=== PATIENT | female | born 1950 | race Caucasian/White ===

== ENCOUNTER 2020-11-23 06:15 | Inpatient (IN) ==
[2020-11-23] MEDS ORDERED: CeFAZolin Syr 2,000MG/20 ML 2,000 MG/20 ML SYRINGE IVPB ONE (06:31)
[2020-11-23] MEDS ORDERED: *HR* Succinylcholine 200 MG/10 ML VIAL IVP ONE (06:40)
[2020-11-23] MEDS ORDERED: *HR* Rocuronium Bromide 50 MG/5 ML VIAL ONE ×2 (06:40→09:19)
[2020-11-23] MEDS ORDERED: Lidocaine -MPF 2% 2 ML VIAL ONE ×2 (06:40→07:03)
[2020-11-23] MEDS ORDERED: *HR* Propofol 200 MG/20 ML VIAL IVP ONE (06:43)
[2020-11-23] MEDS ORDERED: Ringers Solution, Lactated 1,000 ML IVC SCH (06:45)
[2020-11-23] MEDS ORDERED: *HR* FentaNYL (PF) 100 MCG/2 ML VIAL ONE ×2 (06:45→09:05)
[2020-11-23] MEDS ORDERED: Gabapentin 300 MG CAPSULE PO ONE (06:56)
[2020-11-23] MEDS ORDERED: Famotidine 20 MG/2 ML VIAL IVP ONE (06:56)
[2020-11-23] MEDS ORDERED: Acetaminophen IV 1,000 MG/100 ML BAG IVPB ONE (06:56)
[2020-11-23] MEDS ORDERED: Ondansetron 4 MG/2 ML VIAL IVP PRN (07:09)
[2020-11-23] MEDS ORDERED: *HR* OxyCODONE Immed Rel 5 MG TABLET PO PRN (07:09)
[2020-11-23] MEDS ORDERED: Lidocaine 5% OINT 35 APPL/35.44 GM TUBE TP ONE (07:11)
[2020-11-23] MEDS ORDERED: Ketamine *HR* 500 MG/10 ML MDV ONE (07:11)
[2020-11-23] MEDS ORDERED: EPHEDrine 50 MG/ML VIAL ONE (08:51)
[2020-11-23] MEDS: *HR* HYDROmorphone PF 0.5 MG/0.5 ML SYRINGE IVP PRN ×4 (10:59→11:20)
[2020-11-23] MEDS ORDERED: Naloxone 0.4 MG/ML INJ IVP PRN (14:29)
[2020-11-23] MEDS: 0.9 % Sodium Chloride 1,000 ML IVC SCH (18:39)
[2020-11-23] MEDS: Gabapentin 300 MG CAPSULE PO SCH (20:13)
[2020-11-23] MEDS: Famotidine 20 MG TABLET PO SCH (20:13)
[2020-11-23] MEDS: *HR* HYDROcodone/Acet 5/325 mg TABLET PO PRN (22:36)
[2020-11-24] MEDS: *HR* HYDROcodone/Acet 5/325 mg TABLET PO PRN ×3 (03:46→15:22)
[2020-11-24 04:47] LABS: Basophils % 0.3 %; Eosinophils # 0.2 K/mcL (0.0-0.6); Eosinophils % 1.4 %; Hematocrit 36.9 % (35.3-44.9); Hemoglobin 11.8 g/dL (11.5-15.4); Immature Granulocytes % 0.2 % (0-4); Lymphocytes # 1.3 K/mcL (0.6-4.6); Lymphocytes % 10.6 %; Mean Corpuscular Hemoglobin 32.7 pg (28.0-33.3); Mean Corpuscular Volume 102.2 fL (83.0-100.0); Mean Platelet Volume 9.4 fL (9.4-12.4); Monocytes # 0.6 K/mcL (0.0-1.3); Monocytes % 4.5 %; Neutrophils # 10.1 K/mcL (1.6-8.9); Platelet Count 197 K/mcL (140-400); Red Blood Count 3.61 M/mcL (3.82-4.97); Red Cell Distribution Width 13.4 % (11.5-14.5); White Blood Count 12.2 K/mcL (4.3-11.1)
[2020-11-24 05:03] LABS: Calcium 8.5 mg/dL (8.6-10.3); Magnesium 1.8 mg/dL (1.6-2.6); Potassium 4.2 mEq/L (3.5-5.1)
[2020-11-24] MEDS ORDERED: *HR* HYDROmorphone 2 MG/ML SYRINGE IVP PRN (05:18)
[2020-11-24] MEDS: 0.9 % Sodium Chloride 1,000 ML IVC SCH ×2 (09:35→21:39)
[2020-11-24] MEDS ORDERED: Ondansetron 4 MG/2 ML VIAL IVP PRN (09:35)
[2020-11-24] MEDS: Famotidine 20 MG TABLET PO SCH ×2 (09:35→21:40)
[2020-11-24] MEDS: Gabapentin 300 MG CAPSULE PO SCH ×3 (09:35→21:40)
[2020-11-24] MEDS: amLODIPine 5 MG TABLET PO SCH (09:49)
[2020-11-24] MEDS: *HR* HYDROmorphone 2 MG/ML SYRINGE IVP PRN ×3 (13:14→21:40)
[2020-11-24] MEDS: *HR* Heparin 5,000 UNIT/ML VIAL SQ SCH ×2 (15:21→21:41)
[2020-11-24] MEDS: carvediloL 25 MG TABLET PO SCH (21:40)
[2020-11-24] MEDS: Sennosides/Docusate Sodium TABLET PO SCH (21:41)
[2020-11-24] MEDS ORDERED: Furosemide 20 MG/2 ML VIAL IVP ONE (22:23)
[2020-11-24] MEDS: Albuterol 2.5 MG/3 ML NEBULIZER IH PRN (22:35)
[2020-11-25 02:20] LABS: Calcium 8.8 mg/dL (8.6-10.3); Potassium 5.2 mEq/L (3.5-5.1)
[2020-11-25] MEDS: *HR* Heparin 5,000 UNIT/ML VIAL SQ SCH ×3 (06:54→20:55)
[2020-11-25] MEDS: *HR* HYDROmorphone 2 MG/ML SYRINGE IVP PRN (08:05)
[2020-11-25] MEDS: carvediloL 25 MG TABLET PO SCH ×2 (08:07→20:55)
[2020-11-25] MEDS: Sennosides/Docusate Sodium TABLET PO SCH ×2 (08:07→20:54)
[2020-11-25] MEDS: amLODIPine 5 MG TABLET PO SCH (08:07)
[2020-11-25] MEDS: Aspirin Enteric Coated 81 MG Tablet PO SCH (08:07)
[2020-11-25] MEDS: Famotidine 20 MG TABLET PO SCH (08:08)
[2020-11-25] MEDS: Gabapentin 300 MG CAPSULE PO SCH ×3 (08:08→20:55)
[2020-11-25] MEDS: Tiotropium 10 INH DOSE IH SCH (08:10)
[2020-11-25] MEDS: *HR* HYDROcodone/Acet 10/325 mg TABLET PO PRN ×2 (16:36→20:54)
[2020-11-25] MEDS: Albuterol 2.5 MG/3 ML NEBULIZER IH PRN (20:57)
[2020-11-26 01:30] LABS: Basophils % 0.2 %; Eosinophils # 0.1 K/mcL (0.0-0.6); Eosinophils % 0.9 %; Hematocrit 33.5 % (35.3-44.9); Hemoglobin 10.5 g/dL (11.5-15.4); Immature Granulocytes % 0.4 % (0-4); Lymphocytes # 0.9 K/mcL (0.6-4.6); Lymphocytes % 8.8 %; Mean Corpuscular HGB Conc 31.3 g/dL (31.6-35.5); Mean Corpuscular Hemoglobin 31.9 pg (28.0-33.3); Mean Corpuscular Volume 101.8 fL (83.0-100.0); Mean Platelet Volume 9.7 fL (9.4-12.4); Monocytes # 0.4 K/mcL (0.0-1.3); Monocytes % 4.3 %; Neutrophils # 8.4 K/mcL (1.6-8.9); Platelet Count 185 K/mcL (140-400); Red Blood Count 3.29 M/mcL (3.82-4.97); Red Cell Distribution Width 13.4 % (11.5-14.5); Segmented Neutrophils % 85.4 %; White Blood Count 9.8 K/mcL (4.3-11.1)
[2020-11-26 01:42] LABS: Calcium 8.4 mg/dL (8.6-10.3); Potassium 4.7 mEq/L (3.5-5.1)
[2020-11-26] MEDS: *HR* HYDROcodone/Acet 10/325 mg TABLET PO PRN ×4 (02:46→19:24)
[2020-11-26] MEDS: Albuterol 2.5 MG/3 ML NEBULIZER IH PRN (03:53)
[2020-11-26] MEDS: *HR* Heparin 5,000 UNIT/ML VIAL SQ SCH ×3 (06:19→21:39)
[2020-11-26] MEDS: Tiotropium 10 INH DOSE IH SCH (07:55)
[2020-11-26] MEDS: Aspirin Enteric Coated 81 MG Tablet PO SCH (08:28)
[2020-11-26] MEDS: Sennosides/Docusate Sodium TABLET PO SCH ×2 (08:28→21:39)
[2020-11-26] MEDS: Gabapentin 300 MG CAPSULE PO SCH ×3 (08:28→21:38)
[2020-11-26] MEDS: amLODIPine 5 MG TABLET PO SCH (08:28)
[2020-11-26] MEDS: Famotidine 20 MG TABLET PO SCH (08:28)
[2020-11-26] MEDS: carvediloL 25 MG TABLET PO SCH ×2 (08:29→21:38)
[2020-11-26] MEDS ORDERED: Morphine Sulfate 2 MG/ML SYRINGE IVP PRN (08:39)
[2020-11-26] MEDS: Albuterol 2.5 MG/3 ML NEBULIZER IH SCH ×3 (11:30→21:49)
[2020-11-27] MEDS: Albuterol 2.5 MG/3 ML NEBULIZER IH SCH ×4 (03:54→22:18)
[2020-11-27 07:07] LABS: BUN/Creatinine Ratio 38 (6-26); Blood Urea Nitrogen 30 mg/dL (8-23); Calcium 8.7 mg/dL (8.6-10.3); Carbon Dioxide 23 mEq/L (23-29); Chloride 109 mEq/L (98-107); Glucose 91 mg/dL (70-105); Osmolality,Calculated 296 (280-300); Potassium 4.4 mEq/L (3.5-5.1); Sodium 140 mEq/L (136-145); eGFR For African Americans > 60 (> 60); eGFR For Non-African Americans > 60 (> 60)
[2020-11-27] MEDS: Gabapentin 300 MG CAPSULE PO SCH ×3 (07:27→23:54)
[2020-11-27] MEDS: Famotidine 20 MG TABLET PO SCH (07:27)
[2020-11-27] MEDS: carvediloL 25 MG TABLET PO SCH ×2 (07:27→23:54)
[2020-11-27] MEDS: Sennosides/Docusate Sodium TABLET PO SCH ×2 (07:27→23:55)
[2020-11-27] MEDS: Aspirin Enteric Coated 81 MG Tablet PO SCH (07:27)
[2020-11-27] MEDS: amLODIPine 5 MG TABLET PO SCH (07:27)
[2020-11-27] MEDS: Tiotropium 10 INH DOSE IH SCH (11:56)
[2020-11-27] MEDS: *HR* Heparin 5,000 UNIT/ML VIAL SQ SCH ×3 (14:07→23:55)
[2020-11-27] MEDS: *HR* HYDROcodone/Acet 10/325 mg TABLET PO PRN (15:48)
[2020-11-28] MEDS: Albuterol 2.5 MG/3 ML NEBULIZER IH SCH ×4 (03:29→22:27)
[2020-11-28] MEDS: Gabapentin 300 MG CAPSULE PO SCH ×3 (08:22→20:08)
[2020-11-28] MEDS: carvediloL 25 MG TABLET PO SCH ×2 (08:22→20:07)
[2020-11-28] MEDS: Aspirin Enteric Coated 81 MG Tablet PO SCH (08:25)
[2020-11-28] MEDS: polyethylene glycoL 3350 17 GM POWD.PACK PO SCH (08:26)
[2020-11-28] MEDS: Famotidine 20 MG TABLET PO SCH (08:44)
[2020-11-28] MEDS: Sennosides/Docusate Sodium TABLET PO SCH ×2 (08:44→20:07)
[2020-11-28] MEDS: amLODIPine 5 MG TABLET PO SCH (08:44)
[2020-11-28] MEDS: Tiotropium 10 INH DOSE IH SCH (10:44)
[2020-11-28] MEDS: *HR* Heparin 5,000 UNIT/ML VIAL SQ SCH ×3 (16:03→20:06)
[2020-11-29 01:40] LABS: Hematocrit 34.7 % (35.3-44.9); Hemoglobin 11.4 g/dL (11.5-15.4); Mean Corpuscular HGB Conc 32.9 g/dL (31.6-35.5); Mean Corpuscular Hemoglobin 32.2 pg (28.0-33.3); Mean Platelet Volume 9.6 fL (9.4-12.4); Platelet Count 257 K/mcL (140-400); Red Blood Count 3.54 M/mcL (3.82-4.97); Red Cell Distribution Width 13.2 % (11.5-14.5); White Blood Count 9.7 K/mcL (4.3-11.1)
[2020-11-29 02:00] LABS: % Iron Saturation 6 % (15-50); BUN/Creatinine Ratio 35 (6-26); Blood Urea Nitrogen 25 mg/dL (8-23); Calcium 8.8 mg/dL (8.6-10.3); Carbon Dioxide 26 mEq/L (23-29); Chloride 108 mEq/L (98-107); Glucose 88 mg/dL (70-105); Iron 13 mcg/dL (50-170); Magnesium 1.7 mg/dL (1.6-2.6); Osmolality,Calculated 300 (280-300); Potassium 3.6 mEq/L (3.5-5.1); Sodium 143 mEq/L (136-145); Transferrin 161 mg/dL (203-362); eGFR For African Americans > 60 (> 60); eGFR For Non-African Americans > 60 (> 60)
[2020-11-29] MEDS: Albuterol 2.5 MG/3 ML NEBULIZER IH SCH ×4 (03:51→22:09)
[2020-11-29] MEDS: amLODIPine 5 MG TABLET PO SCH (08:12)
[2020-11-29] MEDS: Sennosides/Docusate Sodium TABLET PO SCH ×2 (08:12→20:52)
[2020-11-29] MEDS: Famotidine 20 MG TABLET PO SCH (08:12)
[2020-11-29] MEDS: Gabapentin 300 MG CAPSULE PO SCH ×3 (08:12→20:51)
[2020-11-29] MEDS: Aspirin Enteric Coated 81 MG Tablet PO SCH (08:13)
[2020-11-29] MEDS: polyethylene glycoL 3350 17 GM POWD.PACK PO SCH (08:13)
[2020-11-29] MEDS: carvediloL 25 MG TABLET PO SCH ×2 (08:13→20:51)
[2020-11-29] MEDS: *HR* Heparin 5,000 UNIT/ML VIAL SQ SCH ×3 (08:18→20:52)
[2020-11-29] MEDS ORDERED: Iron Sucrose Complex 400 MG in 0.9 % Sodium Chloride 250 ML IVPB ONE (10:10)
[2020-11-29] MEDS: Acetaminophen 325 MG TABLET PO PRN ×2 (11:04→20:51)
[2020-11-29] MEDS: Tiotropium 10 INH DOSE IH SCH (11:20)
[2020-11-30] MEDS: Albuterol 2.5 MG/3 ML NEBULIZER IH SCH ×3 (04:05→15:22)
[2020-11-30] MEDS: *HR* Heparin 5,000 UNIT/ML VIAL SQ SCH (06:22)
[2020-11-30] MEDS: carvediloL 25 MG TABLET PO SCH (07:49)
[2020-11-30] MEDS: Famotidine 20 MG TABLET PO SCH (07:49)
[2020-11-30] MEDS: Sennosides/Docusate Sodium TABLET PO SCH (07:49)
[2020-11-30] MEDS: Gabapentin 300 MG CAPSULE PO SCH (07:49)
[2020-11-30] MEDS: amLODIPine 5 MG TABLET PO SCH (07:49)
[2020-11-30] MEDS: Acetaminophen 325 MG TABLET PO PRN (07:49)
[2020-11-30] MEDS: Aspirin Enteric Coated 81 MG Tablet PO SCH (07:49)
[2020-11-30] MEDS: polyethylene glycoL 3350 17 GM POWD.PACK PO SCH (07:50)
[2020-11-30] MEDS: Tiotropium 10 INH DOSE IH SCH (10:47)
[2020-11-30 11:21] VITALS: BP 143/90
[2020-11-30] MEDS: *HR* HYDROcodone/Acet 10/325 mg TABLET PO PRN (13:45)
== END 2020-11-30 15:55 | disposition home or self-care (01) | DRG 164 ==
LOC: SAMDAY 06:15 → 2NNU 11:44
PROVIDERS: ADMIT Thoracic Surgery (Cardiothoracic Vascular Surgery); ATTEND Thoracic Surgery (Cardiothoracic Vascular Surgery)

== ENCOUNTER 2020-12-03 11:49 | Inpatient (IN) ==
[2020-12-03] MEDS ORDERED: Ondansetron 4 MG/2 ML VIAL IVP PRN (15:18)
[2020-12-03] MEDS ORDERED: Naloxone 0.4 MG/ML INJ IVP PRN (15:18)
[2020-12-03] MEDS ORDERED: Nitroglycerin 0.4 MG TAB.SUBL SL PRN (15:22)
[2020-12-03] MEDS ORDERED: Azithromycin 500 MG in D5% in Water 250 ML IVPB SCH (16:00)
[2020-12-03] MEDS ORDERED: cefTRIAXone 1,000 MG in Water for inj. (sterile) 20 ML IVP SCH (16:00)
[2020-12-03 16:25] LABS: Basophils % 0.2 %; Eosinophils % 0.1 %; Hematocrit 32.5 % (35.3-44.9); Hemoglobin 10.7 g/dL (11.5-15.4); Immature Granulocytes % 0.6 % (0-4); Lymphocytes # 0.8 K/mcL (0.6-4.6); Lymphocytes % 4.4 %; Mean Corpuscular HGB Conc 32.9 g/dL (31.6-35.5); Mean Corpuscular Hemoglobin 32.8 pg (28.0-33.3); Mean Corpuscular Volume 99.7 fL (83.0-100.0); Mean Platelet Volume 9.5 fL (9.4-12.4); Monocytes # 0.4 K/mcL (0.0-1.3); Monocytes % 2.1 %; Neutrophils # 17.2 K/mcL (1.6-8.9); Platelet Count 336 K/mcL (140-400); Red Blood Count 3.26 M/mcL (3.82-4.97); Red Cell Distribution Width 12.9 % (11.5-14.5); Segmented Neutrophils % 92.6 %; White Blood Count 18.6 K/mcL (4.3-11.1)
[2020-12-03 16:45] LABS: BUN/Creatinine Ratio 24 (6-26); Blood Urea Nitrogen 18 mg/dL (8-23); Calcium 8.4 mg/dL (8.6-10.3); Carbon Dioxide 29 mEq/L (23-29); Chloride 103 mEq/L (98-107); Glucose 104 mg/dL (70-105); Osmolality,Calculated 290 (280-300); Potassium 3.7 mEq/L (3.5-5.1); Sodium 139 mEq/L (136-145); eGFR For African Americans > 60 (> 60); eGFR For Non-African Americans > 60 (> 60)
[2020-12-03] MEDS: Ipratropium/Albuterol Neb 3 ML IH SCH ×2 (17:07→22:18)
[2020-12-03] MEDS: MethylPREDNISolone 40 MG/ML VIAL IVP SCH (18:55)
[2020-12-03] MEDS: carvediloL 25 MG TABLET PO SCH (18:59)
[2020-12-03] MEDS: *HR* Heparin 5,000 UNIT/ML VIAL SQ SCH (19:00)
[2020-12-03] MEDS: BuPROPion SR (12 HR) 150 MG TABLET PO SCH (20:07)
[2020-12-03] MEDS: Acetaminophen 325 MG TABLET PO PRN (20:07)
[2020-12-04] MEDS: MethylPREDNISolone 40 MG/ML VIAL IVP SCH ×4 (00:43→22:49)
[2020-12-04 02:06] LABS: Basophils % 0.2 %; Eosinophils % 0.1 %; Hematocrit 35.4 % (35.3-44.9); Hemoglobin 10.9 g/dL (11.5-15.4); Immature Granulocytes % 0.8 % (0-4); Lymphocytes # 0.9 K/mcL (0.6-4.6); Lymphocytes % 4.7 %; Mean Corpuscular HGB Conc 30.8 g/dL (31.6-35.5); Mean Corpuscular Hemoglobin 31.3 pg (28.0-33.3); Mean Corpuscular Volume 101.7 fL (83.0-100.0); Mean Platelet Volume 9.5 fL (9.4-12.4); Monocytes # 0.4 K/mcL (0.0-1.3); Monocytes % 1.9 %; Neutrophils # 17.5 K/mcL (1.6-8.9); Platelet Count 345 K/mcL (140-400); Red Blood Count 3.48 M/mcL (3.82-4.97); Red Cell Distribution Width 12.8 % (11.5-14.5); Segmented Neutrophils % 92.3 %
[2020-12-04 02:09] LABS: Adenovirus F 40/41 PCR Not detected (Not detect); Astrovirus PCR Not detected (Not detect); C.difficile Toxin A/B Gene PCR Not detected (Not detect); Campylobacter by PCR Not detected (Not detect); Cryptosporidium by PCR Not detected (Not detect); Cyclospora cayetanensis PCR Not detected (Not detect); E. coli O157 by PCR Not detected (Not detect); Entamoeba histolytica PCR Not detected (Not detect); Enteroaggregative E.coli(EAEC) Not detected (Not detect); Enteropathogenic E.coli(EPEC) Not detected (Not detect); Enterotoxigenic E.coli (ETEC) Not detected (Not detect); Giardia lamblia PCR Not detected (Not detect); Norovirus GI/GII PCR Not detected (Not detect); Plesiomonas shigelloides PCR Not detected (Not detect); Rotavirus A PCR Not detected (Not detect); Salmonella PCR Not detected (Not detect); Sapovirus PCR Not detected (Not detect); Shig/EnteroinvasiveE coli EIEC Not detected (Not detect); Shigalike tox-prod E coli STEC Not detected (Not detect); Vibrio PCR Not detected (Not detect); Vibrio cholerae PCR Not detected (Not detect); Yersinia enterocolitica PCR Not detected (Not detect)
[2020-12-04 02:15] LABS: Alanine Aminotransferase 13 Units/L (7-52); Albumin 3.1 g/dL (3.5-5.7); Albumin/Globulin Ratio 1.1 (1.1-2.2); Alkaline Phosphatase 93 Units/L (34-104); Aspartate Amino Transferase 14 Units/L (13-39); BUN/Creatinine Ratio 22 (6-26); Bilirubin,Total 0.3 mg/dL (0.3-1.0); Blood Urea Nitrogen 17 mg/dL (8-23); Calcium 8.6 mg/dL (8.6-10.3); Carbon Dioxide 28 mEq/L (23-29); Chloride 103 mEq/L (98-107); Globulin 2.9 g/dL (2.4-3.5); Glucose 119 mg/dL (70-105); Osmolality,Calculated 291 (280-300); Potassium 3.6 mEq/L (3.5-5.1); Sodium 139 mEq/L (136-145); eGFR For African Americans > 60 (> 60); eGFR For Non-African Americans > 60 (> 60)
[2020-12-04] MEDS ORDERED: Ketorolac 30 MG/ML VIAL IVP ONE (03:51)
[2020-12-04] MEDS: Ipratropium/Albuterol Neb 3 ML IH SCH ×4 (04:11→21:51)
[2020-12-04] MEDS: *HR* Heparin 5,000 UNIT/ML VIAL SQ SCH ×3 (06:22→22:50)
[2020-12-04] MEDS: carvediloL 25 MG TABLET PO SCH ×2 (07:57→15:39)
[2020-12-04] MEDS: Aspirin Enteric Coated 81 MG Tablet PO SCH (07:57)
[2020-12-04] MEDS: BuPROPion SR (12 HR) 150 MG TABLET PO SCH ×3 (07:57→20:06)
[2020-12-04] MEDS: Gabapentin 300 MG CAPSULE PO SCH ×3 (07:57→20:05)
[2020-12-04] MEDS: amLODIPine 5 MG TABLET PO SCH (07:58)
[2020-12-04] MEDS: Tiotropium 10 INH DOSE IH SCH (09:49)
[2020-12-04] MEDS ORDERED: Vancomycin 1,250 MG/262.5 ML IV.SOLN IVPB SCH (13:00)
[2020-12-04 14:19] LABS: INR 1.1; Prothrombin Time 13.1 Seconds (9.4-12.1)
[2020-12-04 14:44] LABS: Adenovirus Not Detected (Not Detect); Bordetella Pertussis Not Detected (Not Detect); Chlamydophila pneumoniae Not Detected (Not Detect); Coronavirus 229E Not Detected (Not Detect); Coronavirus HKU1 Not Detected (Not Detect); Coronavirus NL63 Not Detected (Not Detect); Coronavirus OC43 Not Detected (Not Detect); Human Metapneumovirus Not Detected (Not Detect); Human Rhinovirus/Enterovirus Not Detected (Not Detect); Influenza A Subtype 2009 H1 Not Detected (Not Detect); Influenza B Not Detected (Not Detect); Mycoplasma pneumoniae Not Detected (Not Detect); Parainfluenza Virus 1 Not Detected (Not Detect); Parainfluenza Virus 2 Not Detected (Not Detect); Parainfluenza Virus 3 Not Detected (Not Detect); Parainfluenza Virus 4 Not Detected (Not Detect); Respiratory Syncytial Virus Not Detected (Not Detect); SARS-CoV-2 Not Detected (Not Detect)
[2020-12-04] MEDS: Piperacillin/Tazobactam 3.375 GM in 0.9 % Sodium Chloride Mini Bag 100 ML IVPB SCH ×2 (15:33→20:07)
[2020-12-04] MEDS: Acetaminophen 325 MG TABLET PO PRN (20:06)
[2020-12-04] MEDS: Lactobacillus 1 EACH CAP.SPRINK PO SCH (20:06)
[2020-12-04] MEDS: Budesonide Neb 0.5 MG/2 ML IH SCH (21:51)
[2020-12-05 02:43] LABS: Basophils % 0.1 %; Hematocrit 32.9 % (35.3-44.9); Hemoglobin 10.7 g/dL (11.5-15.4); Immature Granulocytes % 1.1 % (0-4); Lymphocytes # 0.8 K/mcL (0.6-4.6); Mean Corpuscular HGB Conc 32.5 g/dL (31.6-35.5); Mean Corpuscular Hemoglobin 32.3 pg (28.0-33.3); Mean Corpuscular Volume 99.4 fL (83.0-100.0); Mean Platelet Volume 9.2 fL (9.4-12.4); Monocytes # 0.5 K/mcL (0.0-1.3); Monocytes % 2.7 %; Neutrophils # 18.2 K/mcL (1.6-8.9); Platelet Count 390 K/mcL (140-400); Red Blood Count 3.31 M/mcL (3.82-4.97); Red Cell Distribution Width 12.9 % (11.5-14.5); Segmented Neutrophils % 92.1 %; White Blood Count 19.8 K/mcL (4.3-11.1)
[2020-12-05 03:03] LABS: BUN/Creatinine Ratio 26 (6-26); Blood Urea Nitrogen 23 mg/dL (8-23); Calcium 8.8 mg/dL (8.6-10.3); Carbon Dioxide 24 mEq/L (23-29); Chloride 105 mEq/L (98-107); Glucose 133 mg/dL (70-105); Magnesium 1.8 mg/dL (1.6-2.6); Osmolality,Calculated 294 (280-300); Potassium 3.6 mEq/L (3.5-5.1); Sodium 139 mEq/L (136-145); eGFR For African Americans > 60 (> 60); eGFR For Non-African Americans > 60 (> 60)
[2020-12-05] MEDS: Ipratropium/Albuterol Neb 3 ML IH SCH ×4 (03:41→21:57)
[2020-12-05] MEDS: Piperacillin/Tazobactam 3.375 GM in 0.9 % Sodium Chloride Mini Bag 100 ML IVPB SCH ×3 (06:11→22:20)
[2020-12-05] MEDS: *HR* Heparin 5,000 UNIT/ML VIAL SQ SCH ×3 (06:11→22:18)
[2020-12-05] MEDS: carvediloL 25 MG TABLET PO SCH ×2 (09:07→17:04)
[2020-12-05] MEDS: Lactobacillus 1 EACH CAP.SPRINK PO SCH ×2 (09:07→20:22)
[2020-12-05] MEDS: predniSONE 20 MG TABLET PO SCH (09:08)
[2020-12-05] MEDS: Aspirin Enteric Coated 81 MG Tablet PO SCH (09:08)
[2020-12-05] MEDS: amLODIPine 5 MG TABLET PO SCH (09:08)
[2020-12-05] MEDS: BuPROPion SR (12 HR) 150 MG TABLET PO SCH ×3 (09:08→20:22)
[2020-12-05] MEDS: Nicotine 21 MG PATCH.TD24 TD SCH (09:09)
[2020-12-05] MEDS: Gabapentin 300 MG CAPSULE PO SCH ×3 (09:10→20:22)
[2020-12-05] MEDS: Tiotropium 10 INH DOSE IH SCH (10:07)
[2020-12-05] MEDS: Budesonide Neb 0.5 MG/2 ML IH SCH ×2 (10:08→21:57)
[2020-12-06 02:39] LABS: Basophils % 0.3 %; Eosinophils % 0.2 %; Hematocrit 32.4 % (35.3-44.9); Hemoglobin 10.2 g/dL (11.5-15.4); Immature Granulocytes % 1.5 % (0-4); Lymphocytes # 1.6 K/mcL (0.6-4.6); Lymphocytes % 10.4 %; Mean Corpuscular HGB Conc 31.5 g/dL (31.6-35.5); Mean Corpuscular Hemoglobin 32.8 pg (28.0-33.3); Mean Corpuscular Volume 104.2 fL (83.0-100.0); Mean Platelet Volume 9.2 fL (9.4-12.4); Monocytes # 0.8 K/mcL (0.0-1.3); Monocytes % 5.3 %; Neutrophils # 12.5 K/mcL (1.6-8.9); Platelet Count 363 K/mcL (140-400); Red Blood Count 3.11 M/mcL (3.82-4.97); Red Cell Distribution Width 12.8 % (11.5-14.5); Segmented Neutrophils % 82.3 %; White Blood Count 15.2 K/mcL (4.3-11.1)
[2020-12-06 02:58] LABS: Magnesium 1.7 mg/dL (1.6-2.6); Potassium 3.6 mEq/L (3.5-5.1)
[2020-12-06] MEDS: Ipratropium/Albuterol Neb 3 ML IH SCH ×4 (03:35→22:34)
[2020-12-06] MEDS: Piperacillin/Tazobactam 3.375 GM in 0.9 % Sodium Chloride Mini Bag 100 ML IVPB SCH ×3 (06:14→21:37)
[2020-12-06] MEDS: *HR* Heparin 5,000 UNIT/ML VIAL SQ SCH ×3 (06:14→23:37)
[2020-12-06] MEDS: predniSONE 20 MG TABLET PO SCH (11:01)
[2020-12-06] MEDS: carvediloL 25 MG TABLET PO SCH ×2 (11:02→15:13)
[2020-12-06] MEDS: Gabapentin 300 MG CAPSULE PO SCH ×3 (11:02→20:19)
[2020-12-06] MEDS: BuPROPion SR (12 HR) 150 MG TABLET PO SCH ×3 (11:02→20:18)
[2020-12-06] MEDS: Lactobacillus 1 EACH CAP.SPRINK PO SCH ×2 (11:02→20:19)
[2020-12-06] MEDS: amLODIPine 5 MG TABLET PO SCH (11:02)
[2020-12-06] MEDS: Aspirin Enteric Coated 81 MG Tablet PO SCH (11:02)
[2020-12-06] MEDS: Nicotine 21 MG PATCH.TD24 TD SCH (11:03)
[2020-12-06] MEDS: Budesonide Neb 0.5 MG/2 ML IH SCH ×2 (11:37→22:34)
[2020-12-06] MEDS: Tiotropium 10 INH DOSE IH SCH (11:38)
[2020-12-06] MEDS: Acetaminophen 325 MG TABLET PO PRN (15:13)
[2020-12-06] MEDS: *HR* HYDROcodone/Acet 5/325 mg TABLET PO PRN ×2 (17:25→21:37)
[2020-12-07] MEDS: Ipratropium/Albuterol Neb 3 ML IH SCH ×4 (04:36→21:35)
[2020-12-07] MEDS: Piperacillin/Tazobactam 3.375 GM in 0.9 % Sodium Chloride Mini Bag 100 ML IVPB SCH ×3 (06:13→20:42)
[2020-12-07] MEDS: *HR* Heparin 5,000 UNIT/ML VIAL SQ SCH ×3 (06:15→20:43)
[2020-12-07 08:08] LABS: Basophils % 0.3 %; Eosinophils # 0.2 K/mcL (0.0-0.6); Eosinophils % 1.6 %; Hematocrit 34.1 % (35.3-44.9); Hemoglobin 11.1 g/dL (11.5-15.4); Immature Granulocytes % 2.1 % (0-4); Lymphocytes # 1.9 K/mcL (0.6-4.6); Lymphocytes % 13.1 %; Mean Corpuscular HGB Conc 32.6 g/dL (31.6-35.5); Mean Corpuscular Hemoglobin 32.4 pg (28.0-33.3); Mean Corpuscular Volume 99.4 fL (83.0-100.0); Monocytes # 0.7 K/mcL (0.0-1.3); Monocytes % 5.1 %; Platelet Count 438 K/mcL (140-400); Red Blood Count 3.43 M/mcL (3.82-4.97); Red Cell Distribution Width 12.6 % (11.5-14.5); Segmented Neutrophils % 77.8 %; White Blood Count 14.1 K/mcL (4.3-11.1)
[2020-12-07 08:32] LABS: BUN/Creatinine Ratio 17 (6-26); Blood Urea Nitrogen 15 mg/dL (8-23); Calcium 8.4 mg/dL (8.6-10.3); Carbon Dioxide 27 mEq/L (23-29); Chloride 104 mEq/L (98-107); Glucose 76 mg/dL (70-105); Osmolality,Calculated 288 (280-300); Potassium 3.4 mEq/L (3.5-5.1); Sodium 139 mEq/L (136-145); eGFR For African Americans > 60 (> 60); eGFR For Non-African Americans > 60 (> 60)
[2020-12-07] MEDS: Gabapentin 300 MG CAPSULE PO SCH ×3 (10:03→20:40)
[2020-12-07] MEDS: BuPROPion SR (12 HR) 150 MG TABLET PO SCH ×3 (10:03→20:42)
[2020-12-07] MEDS: predniSONE 20 MG TABLET PO SCH (10:03)
[2020-12-07] MEDS: amLODIPine 5 MG TABLET PO SCH (10:03)
[2020-12-07] MEDS: Lactobacillus 1 EACH CAP.SPRINK PO SCH ×2 (10:03→20:41)
[2020-12-07] MEDS: carvediloL 25 MG TABLET PO SCH ×2 (10:03→15:33)
[2020-12-07] MEDS: Aspirin Enteric Coated 81 MG Tablet PO SCH (10:03)
[2020-12-07] MEDS: Budesonide Neb 0.5 MG/2 ML IH SCH ×2 (10:21→21:35)
[2020-12-07] MEDS: Tiotropium 10 INH DOSE IH SCH (10:22)
[2020-12-07] MEDS: Nicotine 21 MG PATCH.TD24 TD SCH (11:59)
[2020-12-07] MEDS: *HR* HYDROcodone/Acet 5/325 mg TABLET PO PRN (20:44)
[2020-12-08 02:49] LABS: Basophils % 0.2 %; Eosinophils # 0.1 K/mcL (0.0-0.6); Eosinophils % 0.3 %; Hematocrit 32.5 % (35.3-44.9); Hemoglobin 10.8 g/dL (11.5-15.4); Lymphocytes # 1.2 K/mcL (0.6-4.6); Lymphocytes % 6.7 %; Mean Corpuscular HGB Conc 33.2 g/dL (31.6-35.5); Mean Corpuscular Hemoglobin 32.3 pg (28.0-33.3); Mean Corpuscular Volume 97.3 fL (83.0-100.0); Mean Platelet Volume 8.9 fL (9.4-12.4); Monocytes # 0.7 K/mcL (0.0-1.3); Monocytes % 3.6 %; Neutrophils # 15.7 K/mcL (1.6-8.9); Platelet Count 445 K/mcL (140-400); Red Blood Count 3.34 M/mcL (3.82-4.97); Red Cell Distribution Width 12.7 % (11.5-14.5); Segmented Neutrophils % 87.2 %
[2020-12-08 03:07] LABS: BUN/Creatinine Ratio 19 (6-26); Blood Urea Nitrogen 19 mg/dL (8-23); Calcium 8.3 mg/dL (8.6-10.3); Carbon Dioxide 28 mEq/L (23-29); Chloride 104 mEq/L (98-107); Glucose 122 mg/dL (70-105); Osmolality,Calculated 292 (280-300); Potassium 3.6 mEq/L (3.5-5.1); Sodium 139 mEq/L (136-145); eGFR For African Americans > 60 (> 60); eGFR For Non-African Americans 55 (> 60)
[2020-12-08] MEDS: Ipratropium/Albuterol Neb 3 ML IH SCH ×4 (03:36→22:18)
[2020-12-08] MEDS: Piperacillin/Tazobactam 3.375 GM in 0.9 % Sodium Chloride Mini Bag 100 ML IVPB SCH ×3 (05:36→22:57)
[2020-12-08] MEDS: *HR* Heparin 5,000 UNIT/ML VIAL SQ SCH ×3 (05:37→22:59)
[2020-12-08] MEDS: predniSONE 20 MG TABLET PO SCH (08:51)
[2020-12-08] MEDS: carvediloL 25 MG TABLET PO SCH ×2 (08:51→15:09)
[2020-12-08] MEDS: BuPROPion SR (12 HR) 150 MG TABLET PO SCH ×3 (08:52→19:55)
[2020-12-08] MEDS: Gabapentin 300 MG CAPSULE PO SCH ×3 (08:52→19:57)
[2020-12-08] MEDS: Nicotine 21 MG PATCH.TD24 TD SCH (08:52)
[2020-12-08] MEDS: amLODIPine 5 MG TABLET PO SCH (08:52)
[2020-12-08] MEDS: Aspirin Enteric Coated 81 MG Tablet PO SCH (08:52)
[2020-12-08] MEDS: Lactobacillus 1 EACH CAP.SPRINK PO SCH ×2 (08:52→19:55)
[2020-12-08] MEDS: Budesonide Neb 0.5 MG/2 ML IH SCH ×2 (10:37→22:18)
[2020-12-08] MEDS: Tiotropium 10 INH DOSE IH SCH (10:40)
[2020-12-08 17:58] LABS: Total Protein,Pleural Fluid 3.1 g/dL
[2020-12-08 18:12] LABS: RBC,Pleural Fluid 5000 RBC/mcL
[2020-12-08 18:13] LABS: Appearance of Pleural Fl Hazy (Clear)
[2020-12-08 18:41] LABS: Basophils,Pleural Fluid 0 %; Monocytes,Pleural Fluid 0 %
[2020-12-08] MEDS: *HR* HYDROcodone/Acet 5/325 mg TABLET PO PRN (19:54)
[2020-12-09 03:12] LABS: Basophils # 0.1 K/mcL (0.0-0.2); Basophils % 0.2 %; Eosinophils # 0.1 K/mcL (0.0-0.6); Eosinophils % 0.2 %; Hematocrit 33.5 % (35.3-44.9); Hemoglobin 10.7 g/dL (11.5-15.4); Lymphocytes # 1.3 K/mcL (0.6-4.6); Lymphocytes % 6.3 %; Mean Corpuscular HGB Conc 31.9 g/dL (31.6-35.5); Mean Corpuscular Hemoglobin 31.3 pg (28.0-33.3); Mean Platelet Volume 8.7 fL (9.4-12.4); Monocytes # 0.9 K/mcL (0.0-1.3); Monocytes % 4.4 %; Neutrophils # 17.5 K/mcL (1.6-8.9); Platelet Count 452 K/mcL (140-400); Red Blood Count 3.42 M/mcL (3.82-4.97); Red Cell Distribution Width 12.8 % (11.5-14.5); Segmented Neutrophils % 86.9 %; White Blood Count 20.2 K/mcL (4.3-11.1)
[2020-12-09 03:20] LABS: BUN/Creatinine Ratio 23 (6-26); Blood Urea Nitrogen 22 mg/dL (8-23); Calcium 8.2 mg/dL (8.6-10.3); Carbon Dioxide 27 mEq/L (23-29); Chloride 105 mEq/L (98-107); Glucose 117 mg/dL (70-105); Osmolality,Calculated 292 (280-300); Potassium 4.1 mEq/L (3.5-5.1); Sodium 139 mEq/L (136-145); eGFR For African Americans > 60 (> 60); eGFR For Non-African Americans 58 (> 60)
[2020-12-09] MEDS: Ipratropium/Albuterol Neb 3 ML IH SCH ×4 (03:30→22:06)
[2020-12-09] MEDS: Piperacillin/Tazobactam 3.375 GM in 0.9 % Sodium Chloride Mini Bag 100 ML IVPB SCH ×3 (05:00→20:23)
[2020-12-09] MEDS: *HR* Heparin 5,000 UNIT/ML VIAL SQ SCH ×3 (05:10→20:29)
[2020-12-09] MEDS: *HR* HYDROcodone/Acet 5/325 mg TABLET PO PRN ×2 (05:23→10:51)
[2020-12-09] MEDS: Nicotine 21 MG PATCH.TD24 TD SCH ×2 (09:47→10:00)
[2020-12-09] MEDS: carvediloL 25 MG TABLET PO SCH ×2 (09:48→17:18)
[2020-12-09] MEDS: Aspirin Enteric Coated 81 MG Tablet PO SCH (09:48)
[2020-12-09] MEDS: amLODIPine 5 MG TABLET PO SCH (09:48)
[2020-12-09] MEDS: Gabapentin 300 MG CAPSULE PO SCH ×3 (09:48→20:22)
[2020-12-09] MEDS: BuPROPion SR (12 HR) 150 MG TABLET PO SCH ×3 (09:48→20:22)
[2020-12-09] MEDS: Lactobacillus 1 EACH CAP.SPRINK PO SCH ×2 (09:49→20:21)
[2020-12-09] MEDS: Budesonide Neb 0.5 MG/2 ML IH SCH ×2 (10:16→22:06)
[2020-12-09] MEDS: Tiotropium 10 INH DOSE IH SCH (10:18)
[2020-12-09] MEDS: *HR* OxyCODONE/APAP 10/325 TABLET PO PRN (17:18)
[2020-12-09] MEDS: clonazePAM 0.5 MG TABLET PO PRN (17:18)
[2020-12-10] MEDS: Ipratropium/Albuterol Neb 3 ML IH SCH ×4 (03:22→21:53)
[2020-12-10] MEDS: Piperacillin/Tazobactam 3.375 GM in 0.9 % Sodium Chloride Mini Bag 100 ML IVPB SCH ×3 (05:06→20:46)
[2020-12-10] MEDS: *HR* Heparin 5,000 UNIT/ML VIAL SQ SCH ×2 (05:07→13:49)
[2020-12-10 07:40] LABS: Basophils # 0.1 K/mcL (0.0-0.2); Basophils % 0.4 %; Eosinophils # 0.7 K/mcL (0.0-0.6); Eosinophils % 3.9 %; Hemoglobin 11.8 g/dL (11.5-15.4); Immature Granulocytes % 1.9 % (0-4); Lymphocytes # 1.9 K/mcL (0.6-4.6); Lymphocytes % 11.3 %; Mean Corpuscular HGB Conc 32.8 g/dL (31.6-35.5); Mean Corpuscular Hemoglobin 33.1 pg (28.0-33.3); Mean Corpuscular Volume 100.8 fL (83.0-100.0); Mean Platelet Volume 8.8 fL (9.4-12.4); Monocytes # 0.7 K/mcL (0.0-1.3); Monocytes % 4.4 %; Neutrophils # 12.9 K/mcL (1.6-8.9); Platelet Count 486 K/mcL (140-400); Red Blood Count 3.57 M/mcL (3.82-4.97); Red Cell Distribution Width 13.2 % (11.5-14.5); Segmented Neutrophils % 78.1 %; White Blood Count 16.6 K/mcL (4.3-11.1)
[2020-12-10 07:57] LABS: BUN/Creatinine Ratio 19 (6-26); Blood Urea Nitrogen 21 mg/dL (8-23); Calcium 8.3 mg/dL (8.6-10.3); Carbon Dioxide 26 mEq/L (23-29); Chloride 103 mEq/L (98-107); Glucose 88 mg/dL (70-105); Magnesium 1.8 mg/dL (1.6-2.6); Osmolality,Calculated 284 (280-300); Potassium 4.2 mEq/L (3.5-5.1); Sodium 136 mEq/L (136-145); eGFR For African Americans > 60 (> 60); eGFR For Non-African Americans 50 (> 60)
[2020-12-10] MEDS: BuPROPion SR (12 HR) 150 MG TABLET PO SCH ×3 (09:01→20:54)
[2020-12-10] MEDS: Gabapentin 300 MG CAPSULE PO SCH ×3 (09:01→20:54)
[2020-12-10] MEDS: Lactobacillus 1 EACH CAP.SPRINK PO SCH ×2 (09:02→20:54)
[2020-12-10] MEDS: Aspirin Enteric Coated 81 MG Tablet PO SCH (09:02)
[2020-12-10] MEDS: carvediloL 25 MG TABLET PO SCH ×2 (09:02→17:21)
[2020-12-10] MEDS: amLODIPine 5 MG TABLET PO SCH (09:06)
[2020-12-10] MEDS: Nicotine 21 MG PATCH.TD24 TD SCH (09:07)
[2020-12-10] MEDS: Budesonide Neb 0.5 MG/2 ML IH SCH ×2 (10:18→21:53)
[2020-12-10] MEDS: Tiotropium 10 INH DOSE IH SCH (10:18)
[2020-12-10] MEDS: clonazePAM 0.5 MG TABLET PO PRN (15:41)
[2020-12-10] MEDS: *HR* HYDROcodone/Acet 5/325 mg TABLET PO PRN ×2 (15:41→20:52)
[2020-12-11 00:05] LABS: Fluid Source for Albumin PLEURAL
[2020-12-11 02:03] LABS: Basophils # 0.1 K/mcL (0.0-0.2); Basophils % 0.3 %; Eosinophils # 0.6 K/mcL (0.0-0.6); Eosinophils % 3.8 %; Hematocrit 35.1 % (35.3-44.9); Hemoglobin 11.5 g/dL (11.5-15.4); Immature Granulocytes % 1.3 % (0-4); Lymphocytes % 12.2 %; Mean Corpuscular HGB Conc 32.8 g/dL (31.6-35.5); Mean Corpuscular Hemoglobin 32.5 pg (28.0-33.3); Mean Corpuscular Volume 99.2 fL (83.0-100.0); Mean Platelet Volume 8.7 fL (9.4-12.4); Monocytes # 0.8 K/mcL (0.0-1.3); Monocytes % 4.8 %; Neutrophils # 12.7 K/mcL (1.6-8.9); Platelet Count 455 K/mcL (140-400); Red Blood Count 3.54 M/mcL (3.82-4.97); Red Cell Distribution Width 13.2 % (11.5-14.5); Segmented Neutrophils % 77.6 %; White Blood Count 16.4 K/mcL (4.3-11.1)
[2020-12-11 02:20] LABS: Calcium 8.4 mg/dL (8.6-10.3)
[2020-12-11] MEDS: Ipratropium/Albuterol Neb 3 ML IH SCH ×4 (03:44→22:23)
[2020-12-11] MEDS: Piperacillin/Tazobactam 3.375 GM in 0.9 % Sodium Chloride Mini Bag 100 ML IVPB SCH ×3 (04:52→21:13)
[2020-12-11] MEDS: *HR* OxyCODONE/APAP 10/325 TABLET PO PRN ×2 (06:19→15:32)
[2020-12-11] MEDS: Aspirin Enteric Coated 81 MG Tablet PO SCH (07:51)
[2020-12-11] MEDS: BuPROPion SR (12 HR) 150 MG TABLET PO SCH ×3 (07:52→21:13)
[2020-12-11] MEDS: Lactobacillus 1 EACH CAP.SPRINK PO SCH ×2 (07:52→21:13)
[2020-12-11] MEDS: Gabapentin 300 MG CAPSULE PO SCH ×3 (07:52→21:12)
[2020-12-11] MEDS: amLODIPine 5 MG TABLET PO SCH (07:52)
[2020-12-11] MEDS: carvediloL 25 MG TABLET PO SCH ×2 (07:52→15:32)
[2020-12-11] MEDS: Nicotine 21 MG PATCH.TD24 TD SCH (07:53)
[2020-12-11] MEDS: Budesonide Neb 0.5 MG/2 ML IH SCH ×2 (10:22→22:23)
[2020-12-11] MEDS: Tiotropium 10 INH DOSE IH SCH (10:23)
[2020-12-11] MEDS: *HR* HYDROcodone/Acet 5/325 mg TABLET PO PRN (12:05)
[2020-12-12 01:35] LABS: Basophils # 0.1 K/mcL (0.0-0.2); Basophils % 0.5 %; Eosinophils # 0.8 K/mcL (0.0-0.6); Eosinophils % 5.6 %; Hematocrit 32.9 % (35.3-44.9); Hemoglobin 10.7 g/dL (11.5-15.4); Immature Granulocytes % 1.2 % (0-4); Lymphocytes # 1.8 K/mcL (0.6-4.6); Mean Corpuscular HGB Conc 32.5 g/dL (31.6-35.5); Mean Corpuscular Hemoglobin 32.4 pg (28.0-33.3); Mean Corpuscular Volume 99.7 fL (83.0-100.0); Mean Platelet Volume 8.6 fL (9.4-12.4); Monocytes # 0.8 K/mcL (0.0-1.3); Monocytes % 5.6 %; Neutrophils # 11.2 K/mcL (1.6-8.9); Platelet Count 393 K/mcL (140-400); Red Cell Distribution Width 13.5 % (11.5-14.5); Segmented Neutrophils % 75.1 %; White Blood Count 14.9 K/mcL (4.3-11.1)
[2020-12-12 02:02] LABS: Calcium 8.1 mg/dL (8.6-10.3); Potassium 4.1 mEq/L (3.5-5.1)
[2020-12-12] MEDS: Ipratropium/Albuterol Neb 3 ML IH SCH ×2 (04:01→10:23)
[2020-12-12] MEDS: Piperacillin/Tazobactam 3.375 GM in 0.9 % Sodium Chloride Mini Bag 100 ML IVPB SCH ×2 (05:23→12:37)
[2020-12-12] MEDS: Lactobacillus 1 EACH CAP.SPRINK PO SCH (08:32)
[2020-12-12] MEDS: carvediloL 25 MG TABLET PO SCH (08:32)
[2020-12-12] MEDS: amLODIPine 5 MG TABLET PO SCH (08:32)
[2020-12-12] MEDS: Aspirin Enteric Coated 81 MG Tablet PO SCH (08:33)
[2020-12-12] MEDS: Nicotine 21 MG PATCH.TD24 TD SCH (08:33)
[2020-12-12] MEDS: Gabapentin 300 MG CAPSULE PO SCH (08:33)
[2020-12-12] MEDS: BuPROPion SR (12 HR) 150 MG TABLET PO SCH (08:33)
[2020-12-12] MEDS: Tiotropium 10 INH DOSE IH SCH (10:23)
[2020-12-12] MEDS: Budesonide Neb 0.5 MG/2 ML IH SCH (10:23)
[2020-12-12 10:36] VITALS: BP 129/78
[2020-12-12] MEDS: *HR* OxyCODONE/APAP 10/325 TABLET PO PRN (12:37)
== END 2020-12-12 15:51 | disposition home or self-care (01) | DRG 871 ==
LOC: 2ANU → SUATTDRO 13:56
PROVIDERS: ADMIT Internal Medicine; ATTEND Internal Medicine

== ENCOUNTER 2021-05-01 11:35 | Inpatient (IN) ==
[2021-05-01 12:33] LABS: Basophils % 0.4 %; Eosinophils # 0.7 K/mcL (0.0-0.6); Eosinophils % 7.2 %; Hematocrit 36.3 % (35.3-44.9); Hemoglobin 12.1 g/dL (11.5-15.4); Immature Granulocytes % 0.4 % (0-4); Lymphocytes # 1.3 K/mcL (0.6-4.6); Mean Corpuscular HGB Conc 33.3 g/dL (31.6-35.5); Mean Corpuscular Hemoglobin 32.1 pg (28.0-33.3); Mean Corpuscular Volume 96.3 fL (83.0-100.0); Mean Platelet Volume 8.8 fL (9.4-12.4); Monocytes # 0.4 K/mcL (0.0-1.3); Monocytes % 3.6 %; Neutrophils # 7.6 K/mcL (1.6-8.9); Platelet Count 241 K/mcL (140-400); Red Blood Count 3.77 M/mcL (3.82-4.97); Red Cell Distribution Width 12.3 % (11.5-14.5); Segmented Neutrophils % 75.4 %
[2021-05-01 12:52] LABS: BUN/Creatinine Ratio 22 (6-26); Blood Urea Nitrogen 23 mg/dL (8-23); Carbon Dioxide 21 mEq/L (23-29); Chloride 110 mEq/L (98-107); Glucose 93 mg/dL (70-105); Osmolality,Calculated 287 (280-300); Potassium 4.6 mEq/L (3.5-5.1); Sodium 137 mEq/L (136-145); Troponin I < 0.03 ng/mL (< 0.04); eGFR For African Americans > 60 (> 60); eGFR For Non-African Americans 51 (> 60)
[2021-05-01 12:57] LABS: INR 1.1; Prothrombin Time 12.3 Seconds (9.4-12.1)
[2021-05-01 12:59] LABS: Activated Partial Thrombo Time 47.5 Seconds (26.0-36.0)
[2021-05-01] MEDS ORDERED: Isovue-370 500 ML BOTTLE IVP ONE (13:31)
[2021-05-01] MEDS ORDERED: Aspirin 81 MG TAB.CHEW PO ONE (14:00)
[2021-05-01] MEDS ORDERED: Acetaminophen 325 MG TABLET PO PRN (15:32)
[2021-05-01] MEDS ORDERED: Ondansetron 4 MG/2 ML VIAL IVP PRN (15:32)
[2021-05-01] MEDS ORDERED: Naloxone 0.4 MG/ML INJ IVP PRN (15:32)
[2021-05-01] MEDS ORDERED: Nitroglycerin 0.4 MG TAB.SUBL SL PRN (15:37)
[2021-05-01] MEDS ORDERED: Perflutren Lipid Microsphere 1.3 ML in 0.9 % Sodium Chloride 8.7 ML IVP PRN (15:42)
[2021-05-01] MEDS ORDERED: Ipratropium/Albuterol Neb 3 ML IH PRN (16:09)
[2021-05-01] MEDS ORDERED: Pantoprazole 40 MG VIAL IVP ONE (16:14)
[2021-05-02 01:36] LABS: Basophils % 0.5 %; Eosinophils # 0.7 K/mcL (0.0-0.6); Eosinophils % 8.4 %; Hematocrit 31.1 % (35.3-44.9); Hemoglobin 10.8 g/dL (11.5-15.4); Immature Granulocytes % 0.1 % (0-4); Lymphocytes # 1.3 K/mcL (0.6-4.6); Lymphocytes % 15.9 %; Mean Corpuscular HGB Conc 34.7 g/dL (31.6-35.5); Mean Corpuscular Hemoglobin 33.1 pg (28.0-33.3); Mean Corpuscular Volume 95.4 fL (83.0-100.0); Mean Platelet Volume 8.9 fL (9.4-12.4); Monocytes # 0.5 K/mcL (0.0-1.3); Monocytes % 5.6 %; Neutrophils # 5.7 K/mcL (1.6-8.9); Platelet Count 219 K/mcL (140-400); Red Blood Count 3.26 M/mcL (3.82-4.97); Red Cell Distribution Width 12.3 % (11.5-14.5); Segmented Neutrophils % 69.5 %; White Blood Count 8.2 K/mcL (4.3-11.1)
[2021-05-02 01:55] LABS: BUN/Creatinine Ratio 21 (6-26); Blood Urea Nitrogen 22 mg/dL (8-23); Calcium 8.3 mg/dL (8.6-10.3); Carbon Dioxide 19 mEq/L (23-29); Chloride 110 mEq/L (98-107); Glucose 105 mg/dL (70-105); Magnesium 1.7 mg/dL (1.6-2.6); Osmolality,Calculated 290 (280-300); Potassium 4.2 mEq/L (3.5-5.1); Sodium 138 mEq/L (136-145); eGFR For African Americans > 60 (> 60); eGFR For Non-African Americans 53 (> 60)
[2021-05-02] MEDS ORDERED: Regadenoson 0.4 MG/5 ML SYRINGE IVP ONE (06:41)
[2021-05-02] MEDS ORDERED: Nitroglycerin 0.4 MG TAB.SUBL SL PRN (20:24)
[2021-05-02] MEDS: Lactobacillus 1 EACH CAP.SPRINK PO SCH (20:52)
[2021-05-02] MEDS: carvediloL 25 MG TABLET PO SCH (20:53)
[2021-05-03 07:20] LABS: Basophils % 0.5 %; Eosinophils # 0.5 K/mcL (0.0-0.6); Eosinophils % 9.1 %; Hematocrit 32.9 % (35.3-44.9); Hemoglobin 10.9 g/dL (11.5-15.4); Immature Granulocytes % 0.2 % (0-4); Lymphocytes # 1.4 K/mcL (0.6-4.6); Lymphocytes % 24.1 %; Mean Corpuscular HGB Conc 33.1 g/dL (31.6-35.5); Mean Corpuscular Hemoglobin 31.9 pg (28.0-33.3); Mean Corpuscular Volume 96.2 fL (83.0-100.0); Mean Platelet Volume 9.1 fL (9.4-12.4); Monocytes # 0.4 K/mcL (0.0-1.3); Monocytes % 7.3 %; Neutrophils # 3.5 K/mcL (1.6-8.9); Platelet Count 226 K/mcL (140-400); Red Blood Count 3.42 M/mcL (3.82-4.97); Red Cell Distribution Width 12.3 % (11.5-14.5); Segmented Neutrophils % 58.8 %; White Blood Count 5.9 K/mcL (4.3-11.1)
[2021-05-03 08:12] LABS: BUN/Creatinine Ratio 21 (6-26); Blood Urea Nitrogen 19 mg/dL (8-23); Calcium 8.9 mg/dL (8.6-10.3); Carbon Dioxide 24 mEq/L (23-29); Chloride 110 mEq/L (98-107); Glucose 91 mg/dL (70-105); Magnesium 1.8 mg/dL (1.6-2.6); Osmolality,Calculated 290 (280-300); Potassium 4.1 mEq/L (3.5-5.1); Sodium 139 mEq/L (136-145); eGFR For African Americans > 60 (> 60); eGFR For Non-African Americans > 60 (> 60)
[2021-05-03 08:19] LABS: % Iron Saturation 21 % (15-50); Iron 64 mcg/dL (50-170); Transferrin 214 mg/dL (203-362)
[2021-05-03 08:32] LABS: Ferritin 109 ng/mL (10-120)
[2021-05-03 08:37] LABS: Folate 13.8 ng/mL (3.0-16.0)
[2021-05-03] MEDS ORDERED: amLODIPine 5 MG TABLET PO SCH (09:00)
[2021-05-03] MEDS ORDERED: Heparin 1,000 UNITS/500 mL 500 ML ONE (12:40)
[2021-05-03] MEDS ORDERED: Nitroglycerin 1,000 MCG/5 ML VIAL IV ONE (12:40)
[2021-05-03] MEDS ORDERED: *HR* Heparin 10,000 UNIT/10 ML VIAL ONE (12:40)
[2021-05-03] MEDS ORDERED: 0.9 % Sodium Chloride 2,000 ML ONE (12:40)
[2021-05-03] MEDS ORDERED: ISOVUE-370 200 ML INFUS..BTL ONE (12:40)
[2021-05-03] MEDS: carvediloL 25 MG TABLET PO SCH ×2 (13:01→15:25)
[2021-05-03] MEDS ORDERED: *HR* Midazolam HCl 2 MG/2 ML VIAL ONE (13:29)
[2021-05-03] MEDS ORDERED: *HR* FentaNYL (PF) 100 MCG/2 ML VIAL ONE (13:29)
[2021-05-03] MEDS: Aspirin Enteric Coated 81 MG Tablet PO SCH (15:25)
[2021-05-03] MEDS: Cholecalciferol (D-3) 1,000 UNIT (25MCG) TABLET PO SCH (15:26)
[2021-05-03] MEDS: Lactobacillus 1 EACH CAP.SPRINK PO SCH ×2 (15:33→21:09)
[2021-05-04 05:34] LABS: Basophils % 0.5 %; Eosinophils # 0.5 K/mcL (0.0-0.6); Eosinophils % 7.9 %; Hematocrit 33.1 % (35.3-44.9); Hemoglobin 11.3 g/dL (11.5-15.4); Immature Granulocytes % 0.4 % (0-4); Lymphocytes # 1.3 K/mcL (0.6-4.6); Lymphocytes % 23.4 %; Mean Corpuscular HGB Conc 34.1 g/dL (31.6-35.5); Mean Corpuscular Hemoglobin 32.6 pg (28.0-33.3); Mean Corpuscular Volume 95.4 fL (83.0-100.0); Mean Platelet Volume 9.1 fL (9.4-12.4); Monocytes # 0.5 K/mcL (0.0-1.3); Monocytes % 7.9 %; Neutrophils # 3.4 K/mcL (1.6-8.9); Platelet Count 225 K/mcL (140-400); Red Blood Count 3.47 M/mcL (3.82-4.97); Red Cell Distribution Width 12.1 % (11.5-14.5); Segmented Neutrophils % 59.9 %; White Blood Count 5.7 K/mcL (4.3-11.1)
[2021-05-04 05:51] LABS: BUN/Creatinine Ratio 20 (6-26); Blood Urea Nitrogen 20 mg/dL (8-23); Calcium 8.6 mg/dL (8.6-10.3); Carbon Dioxide 22 mEq/L (23-29); Chloride 109 mEq/L (98-107); Glucose 85 mg/dL (70-105); Magnesium 1.7 mg/dL (1.6-2.6); Osmolality,Calculated 290 (280-300); Potassium 4.3 mEq/L (3.5-5.1); Sodium 139 mEq/L (136-145); eGFR For African Americans > 60 (> 60); eGFR For Non-African Americans 55 (> 60)
[2021-05-04] MEDS ORDERED: Ringers Solution, Lactated 1,000 ML IVC ONE (07:38)
[2021-05-04] MEDS ORDERED: carvediloL 25 MG TABLET PO SCH (08:00)
[2021-05-04] MEDS: Cholecalciferol (D-3) 1,000 UNIT (25MCG) TABLET PO SCH (08:06)
[2021-05-04] MEDS: Aspirin Enteric Coated 81 MG Tablet PO SCH (08:06)
[2021-05-04] MEDS: Lactobacillus 1 EACH CAP.SPRINK PO SCH (08:07)
[2021-05-04] MEDS ORDERED: Isosorbide MONOnitrate (24 HR) 30 MG TAB.ER.24H PO SCH (09:00)
[2021-05-04 10:12] VITALS: BP 116/75
== END 2021-05-04 11:27 | disposition home or self-care (01) | DRG 287 ==
LOC: SUATTDRO → EMEROOARM 11:35 → 3BNU 11:35 → SUATTDRO 19:35 → 3BNU 20:26
PROVIDERS: ADMIT Pharmacist; ATTEND Pharmacist